=== PATIENT | male | born 1970 | race Caucasian/White ===

== ENCOUNTER → 2023-12-01 | Outpatient (REF) | payer BC ==
[2023-12-01 18:37] LABS: C REACTIVE PROTEIN QUANTITATIV < 0.40 MG/DL (<1.0)
[2023-12-01 23:51] LABS: RHEUMATOID FACTOR QUANT 7.7 IU/ML (<14)
== END ==
LOC: M LAB REF 16:46
PROVIDERS: ATTEND Internal Medicine Pulmonary Disease
DX: J84.10 Pulmonary fibrosis, unspecified (principal)

== ENCOUNTER → 2024-04-02 | Outpatient (CLI) | payer BC | LOC: M RAD 14:13 | PROVIDERS: ATTEND Internal Medicine Pulmonary Disease | DX: J84.10 Pulmonary fibrosis, unspecified (principal) ==